=== PATIENT | male | born 1990 | race Caucasian/White ===

== ENCOUNTER 2023-07-23 19:30 | Emergency (ER) | payer OTHER ==
[2023-07-23] MEDS ORDERED: Ibuprofen 600 MG Tab PO ONE (19:36)
[2023-07-23] MEDS ORDERED: Cyclobenzaprine 10 MG Tab PO ONE (19:36)
== END 2023-07-23 20:55 | disposition home or self-care (01) ==
LOC: MW.ED 19:30
DX: S86.911A Strain of unspecified muscle(s) and tendon(s) at lower leg level, right leg, initial encounter (principal); F17.210 Nicotine dependence, cigarettes, uncomplicated; Z91.013 Allergy to seafood; V89.2XXA Person injured in unspecified motor-vehicle accident, traffic, initial encounter; Y92.410 Unspecified street and highway as the place of occurrence of the external cause
CPT/HCPCS: 73562; 99284; A9270; 99283